=== PATIENT | female | born 2005 | race Two or more races ===

== ENCOUNTER 2025-04-09 17:13 | Emergency (ER) | payer OTHER ==
[~2025-04-09] VITALS: Ht 167.6 cm; Wt 68.9 kg
[2025-04-09] MEDS ORDERED: KETOROLAC TROMETHAMINE 60 MG VIAL IM ONE ×2 (18:00→18:39)
[2025-04-09] MEDS ORDERED: DEXAMETHASONE SODIUM PHOSPHATE 4 MG/ML VIAL IM ONE (18:00)
[2025-04-09] MEDS ORDERED: DEXAMETHASONE SODIUM PHOSPHATE 4 MG/ML VIAL ONE (18:39)
[2025-04-09] MEDS ORDERED: IBU600 MG PO (19:43)
== END 2025-04-09 20:04 | disposition home or self-care (01) ==
LOC: ER 17:14 → EMR PED 17:14
DX: S96.911A Strain of unspecified muscle and tendon at ankle and foot level, right foot, initial encounter (principal); X50.1XXA Overexertion from prolonged static or awkward postures, initial encounter; Y93.66 Activity, soccer; Y92.89 Other specified places as the place of occurrence of the external cause